=== PATIENT | male | born 1955 ===

== ENCOUNTER 2019-09-15 09:59 | Emergency (ER) | payer MEDICARE ==
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
[2019-09-15] MEDS ORDERED: Ondansetron INJ* 2 MG/ML VIAL IV ONE (10:44)
[2019-09-15] MEDS ORDERED: Morphine 4 MG/ML VIAL (1 ml) 4 MG/ML VIAL IV ONE ×2 (10:44→14:33)
[2019-09-15] MEDS ORDERED: NS 0.9% 1000 ML** 1,000 ML IV SCH (10:45)
[2019-09-15 10:56] LABS: ABS Eosinophils 0.2 10^3/ul (0-0.6); ABS Lymphocytes 1.5 10^3/ul (1.0-4.8); ABS Monocytes 0.8 10^3/ul (0-0.8); Eosinophil % 2.2 %; Hematocrit 49 % (42-52); Mean Corpuscular HGB Conc 35 g/dL (31-36); Mean Corpuscular Hemoglobin 33 pg (27-31); Mean Corpuscular Volume 95 fL (80-94); Mean Platelet Volume 9.4 fL (7.4-10.4); Nucleated Red Blood Cells % 0.3; Platelet Count 267 10^3/uL (150-450); Red Blood Count 5.17 10^6 /uL (4.18-5.48); Red Cell Distribution Width 17 % (10-15); White Blood Count 9.6 10^3/uL (3.5-10.8)
[2019-09-15 11:12] LABS: Albumin 4.3 g/dL (3.2-5.2); Albumin/Globulin Ratio 1.9 (1-3); EGFR African American 91.3 (>60); EGFR Non-African American 75.5 (>60); Globulin 2.3 g/dL (2-4); Potassium 4.2 mmol/L (3.5-5.0); Total Bilirubin 0.4 mg/dL (0.2-1.0); Total Protein 6.6 g/dL (6.4-8.9)
[2019-09-15] MEDS ORDERED: Iohexol 300* (CONTRAST) 10 ML SDV IV ONE (11:16)
[2019-09-15 14:32] VITALS: BP 190/116
== END 2019-09-15 14:30 | disposition short-term general hospital (02) ==
LOC: ED 09:59
DX: S12.9XXA Fracture of neck, unspecified, initial encounter (principal); V86.99XA Unspecified occupant of other special all-terrain or other off-road motor vehicle injured in nontraffic accident, initial encounter; Y92.9 Unspecified place or not applicable; I10 Essential (primary) hypertension
CPT/HCPCS: 36415; 70450; 71045; 71260; 72125; 74177; 80053; 83605; 85025; 86850; 86900; 86901; 93005; 96361; 96374; 96375; 96376; 99283; J2270; J2405; Q9967